=== PATIENT | female | born 1980 | race African-American/Black ===

== ENCOUNTER → 2019-03-13 | Outpatient (CLI) | payer BC ==
--- NOTE | 2019-03-14 11:06 | KCIC ---
PELVIS W/TV History: Pelvic pain Comparison: None. Findings: Multiple transabdominal sonographic images of the pelvis are submitted. Pelvic structures are poorly visualized. Transvaginal ultrasound: Multiple transvaginal sonographic images of the pelvis are submitted. Retroflexed uterus measured 10.5 x 4.4 x 5.2 cm. There is minimal free fluid in the pelvis. Right ovary measured 3 x 1.8 x 2.9 cm. Left ovary measured 6.2 x 4.4 x 4.8 cm. There is normal low resistance vascularity of the bilateral ovaries. There is a somewhat hypoechoic lesion of the left ovary about 5.5 x 3.5 x 3.9 cm with internal echoes. There is some fluid in the cervical canal, also nabothian cysts. Impression: 1. There is a hypoechoic lesion with diffuse internal echoes of the left ovary is likely hemorrhagic cyst/complex cyst for which 3 month follow-up advised. There is minimal free fluid in the pelvis. Electronically signed by: Franklin Murillo MD (03/14/2019 11:03 AM) [id number]
== END | disposition home or self-care (01) ==
LOC: KCIC US 14:46
PROVIDERS: ATTEND Nurse Practitioner Women's Health
DX: N88.8 Other specified noninflammatory disorders of cervix uteri (principal); N83.8 Other noninflammatory disorders of ovary, fallopian tube and broad ligament
CPT/HCPCS: 76830; 76856